=== PATIENT | female | born 1970 | race Caucasian/White ===

== ENCOUNTER 2016-06-15 09:02 | Inpatient (IN) | payer OTHER ==
[2016-06-15 10:12] VITALS: BMI 20.1
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
[2016-06-15] MEDS ORDERED: MAGNESIUM CITRATE 300 ML BOTTLE PO PRN (12:53)
[2016-06-15] MEDS ORDERED: MAGNESIUM HYDROX 2400MG/30ML ORAL SUSPENSION 30 ML CUP PO PRN (12:53)
[2016-06-15] MEDS ORDERED: MENTHOL/PHENOL 1 EACH UD MM PRN (12:53)
[2016-06-15] MEDS ORDERED: P-EPHED 60MG/TRIPROLIDI 2.5MG TABLET PO PRN (12:53)
[2016-06-15] MEDS ORDERED: ACETAMINOPHEN 325 MG TABLET (FP) PO PRN (12:53)
[2016-06-15] MEDS ORDERED: guaiFENesin/D-METHORPHAN HB 10 ML UNIT-DOSE CUPS PO PRN (12:53)
[2016-06-15] MEDS ORDERED: IBUPROFEN 400 MG TABLET (FP) PO PRN (12:53)
[2016-06-15] MEDS ORDERED: MAG HYDROX/AL HYDROX/SIMETH 30 ML UNIT-DOSE CUP PO PRN (12:53)
[2016-06-15] MEDS ORDERED: LOPERAMIDE HCL 2 MG CAPSULE PO PRN (12:53)
[2016-06-15] MEDS ORDERED: diphenhydrAMINE HCL 50 MG CAPSULE PO PRN (12:53)
[2016-06-15] MEDS ORDERED: ALBUTEROL SO4 6.7 GM HFA INHALER IH PRN (12:57)
[2016-06-15] MEDS ORDERED: diazePAM 5 MG TABLET PO ONE (13:30)
[2016-06-15] MEDS ORDERED: METHADONE HCL 10 MG TABLET (FOR DETOX USE ONLY) PO ONE ×2 (13:45→23:00)
[2016-06-15] MEDS: diazePAM 5 MG TABLET PO SCH ×2 (13:53→22:55)
[2016-06-15] MEDS: NICOTINE 21 MG/24 HOURS TOPICAL PATCH TD SCH (13:53)
[2016-06-15] MEDS: CEPHALEXIN MONOHYDRATE 500 MG CAPSULE (UD) PO SCH ×2 (17:33→23:04)
[2016-06-15 19:57] LABS: URINE APPEARANCE CLOUDY; URINE BILIRUBIN NEGATIVE (NEGATIVE); URINE BLOOD NEGATIVE (NEGATIVE); URINE COLOR AMBER; URINE GLUCOSE (UA) NEGATIVE (NEGATIVE); URINE KETONE TRACE (NEGATIVE); URINE NITRITE POSITIVE (NEGATIVE); URINE UROBILINOGEN NEGATIVE E.U./dl (0.2-1.0)
[2016-06-15 20:00] LABS: URINE LEUK ESTERASE 2+ (NEGATIVE); URINE PROTEIN 2+ (NEGATIVE)
[2016-06-15 20:07] LABS: CALCIUM OXALATE CRYSTALS MODERATE /hpf (NONE SEEN); URINE BACTERIA MODERATE /hpf (NONE SEEN); URINE MUCUS MANY; URINE RBC 12 /hpf (0-3); URINE WBC 218 /hpf (3-5)
[2016-06-15] MEDS: ACLIDINIUM BROMIDE 400 MCG/INH AERO.POWD IH SCH (22:55)
[2016-06-15] MEDS: THIAMINE HCL 100 MG TABLET (FP) PO SCH (23:05)
[2016-06-16] MEDS: CEPHALEXIN MONOHYDRATE 500 MG CAPSULE (UD) PO SCH ×3 (05:28→18:00)
[2016-06-16] MEDS: diazePAM 5 MG TABLET PO SCH ×3 (05:30→22:43)
[2016-06-16] MEDS: LEVOTHYROXINE NA 25 MCG TABLET (FP) PO SCH (07:00)
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
[2016-06-16] MEDS ORDERED: METHADONE HCL 10 MG TABLET (FOR DETOX USE ONLY) PO SCH (10:00)
--- NOTE | 2016-06-16 10:13 | PN ---
BHS COWS - Scale Resting Pulse: 1= [place] 81-100 Sweatin= Chills/Flushing Restless Observation: 3= Extraneous Movement Pupil Size: 1= Pupils >than Normal Bone or Joint Aches: 2= Severe Diffuse Aches Runny Nose/ Eye Tearin= Runny Nose/Eyes GI Upset > 30mins: 3= Vomiting/Diarrhea Tremor Observation of Outstretched Hands: 2= Slight Tremor Visible Yawning Observation: 1= 1-2x During Session Anxiety or Irritability: 2=Irritable/Anxious Goose Flesh Skin: 0=Smooth Skin COWS Score: 18 BHS Progress Note (SOAP) Subjective: ALERT,IRRITABLE,ANXIOUS,INTERRUPTED SLEEP,PAIN IN BODY,AND BACK Objective: Vital Signs Temperature 98.1 F 06/16/16 09:31 Pulse Rate 83 06/16/16 09:31 Respiratory Rate 16 06/16/16 09:31 Blood Pressure 112/71 06/16/16 09:31 O2 Sat by Pulse Oximetry (%) EKG NSR INVERTED T IN 2,3 NO CHEST PAIN,NO SOB,NO DIZZINESS Laboratory Last Values Urine Color Rosario 06/15/16 15:00 Urine Appearance Cloudy 06/15/16 15:00 Urine pH 6.0 (5.0-8.0) 06/15/16 15:00 Ur Specific [place] 1.029 (1.001-1.035) 06/15/16 15:00 Urine Protein 2+ (NEGATIVE) H 06/15/16 15:00 Urine Glucose (UA) Negative (NEGATIVE) 06/15/16 15:00 Urine Ketones Trace (NEGATIVE) H 06/15/16 15:00 Urine Blood Negative (NEGATIVE) 06/15/16 15:00 Urine Nitrite Positive (NEGATIVE) 06/15/16 15:00 Urine Bilirubin Negative (NEGATIVE) 06/15/16 15:00 Urine Urobilinogen Negative E.U./dl (0.2-1.0) 06/15/16 15:00 Ur Leukocyte Esterase 2+ (NEGATIVE) H 06/15/16 15:00 Urine RBC 12 /hpf (0-3) 06/15/16 15:00 Urine WBC 218 /hpf (3-5) 06/15/16 15:00 Ur Epithelial Cells Many /hpf (FEW) 06/15/16 15:00 Calcium Oxalate Crystal Moderate /hpf (NONE SEEN) 06/15/16 15:00 Amorphous Urates Few /hpf (NONE SEEN) 06/15/16 15:00 Urine Bacteria Moderate /hpf (NONE SEEN) 06/15/16 15:00 Urine Mucus Many 06/15/16 15:00 LABS PENDING Assessment: 06/16/16 10:13 WITHDRAWAL SYMPTOM Plan: CONTINUE DETOX,REPEAT UA AND URINE FOR C/S
[2016-06-16] MEDS: PRENATAL VITAMINS W/ FOLIC ACID TABLET (FP) PO SCH (10:34)
[2016-06-16] MEDS: diazePAM 5 MG TABLET PO PRN (10:34)
[2016-06-16] MEDS: CALCIUM 500MG/VIT-D 200 UNITS COMBO TABLET (FP) PO SCH (10:34)
[2016-06-16] MEDS: ACLIDINIUM BROMIDE 400 MCG/INH AERO.POWD IH SCH ×2 (10:35→22:43)
[2016-06-16] MEDS: NICOTINE 21 MG/24 HOURS TOPICAL PATCH TD SCH (10:35)
[2016-06-16] MEDS: ASPIRIN 81 MG CHEWABLE TABLETS PO SCH (10:35)
--- NOTE | 2016-06-16 10:36 | EKG ---
Test Reason : Blood Pressure : / mmHG Vent. Rate : 069 BPM Atrial Rate : 069 BPM P-R Int : 148 ms QRS Dur : 082 ms QT Int : 384 ms P-R-T Axes : 014 027 -51 degrees QTc Int : 411 ms POOR DATA QUALITY, INTERPRETATION MAY BE ADVERSELY AFFECTED NORMAL SINUS RHYTHM ABNORMAL ECG WHEN COMPARED WITH ECG OF 07-AUG-2007 11:27, T WAVE INVERSION NOW EVIDENT IN INFERIOR LEADS Confirmed by ALDAIR MOODY, CLARE ([id number]) on 06/16/2016 10:35:42 AM Referred By: Jaxon Gutierrez Confirmed By:CLARE QUINTEROS MD
[2016-06-16 10:38] LABS: MCH 29.1 pg (25.7-33.7); MCHC 32.4 g/dl (32.0-36.0); MEAN CELL VOLUME 89.7 fl (80-96); MEAN PLT VOLUME 9.5 fl (7.5-11.1)
[2016-06-16 10:49] LABS: ALBUMIN 3.5 g/dl (3.4-5.0); ANION GAP 7 (8-16); CALCIUM 8.6 mg/dL (8.5-10.1); CO2 26 mmol/L (21-32); GLUCOSE,RANDOM 109 mg/dL (74-106)
[2016-06-16 10:53] LABS: ALK PHOS 104 U/L (45-117); BILIRUBIN,TOTAL 0.2 mg/dL (0.2-1.0); CREATININE 0.7 mg/dL (0.55-1.02); SGOT/AST 24 U/L (15-37); SGPT/ALT 23 U/L (12-78); TOT PROT 6.9 g/dl (6.4-8.2)
[2016-06-16] MEDS: hydrOXYzine PAMOATE 25 MG CAPSULE (FP) PO PRN (16:04)
[2016-06-16 16:07] LABS: PLATELET COMMENT2 MARKED PLT CLUMPING; PLATELET COMMENT3 MOD LARGE PLTS; PLATELET ESTIMATE ADEQUATE (NORMAL)
[2016-06-16 19:15] LABS: URINE APPEARANCE SLCLOUDY; URINE BILIRUBIN NEGATIVE (NEGATIVE); URINE BLOOD NEGATIVE (NEGATIVE); URINE COLOR YELLOW; URINE GLUCOSE (UA) NEGATIVE (NEGATIVE); URINE KETONE NEGATIVE (NEGATIVE); URINE NITRITE NEGATIVE (NEGATIVE); URINE PROTEIN NEGATIVE (NEGATIVE); URINE UROBILINOGEN NEGATIVE E.U./dl (0.2-1.0)
[2016-06-16 19:16] LABS: URINE LEUK ESTERASE TRACE (NEGATIVE)
[2016-06-16 19:18] LABS: CALCIUM OXALATE CRYSTALS MODERATE /hpf (NONE SEEN); URINE MUCUS RARE; URINE RBC 1 /hpf (0-3); URINE WBC 13 /hpf (3-5)
[2016-06-16] MEDS: THIAMINE HCL 100 MG TABLET (FP) PO SCH (22:43)
[2016-06-17] MEDS: CEPHALEXIN MONOHYDRATE 500 MG CAPSULE (UD) PO SCH ×5 (00:26→23:33)
[2016-06-17] MEDS: diazePAM 5 MG TABLET PO PRN ×4 (05:20→18:43)
[2016-06-17] MEDS: LEVOTHYROXINE NA 25 MCG TABLET (FP) PO SCH (07:11)
[2016-06-17] MEDS: hydrOXYzine PAMOATE 25 MG CAPSULE (FP) PO PRN (08:52)
[2016-06-17] MEDS: CALCIUM 500MG/VIT-D 200 UNITS COMBO TABLET (FP) PO SCH (10:38)
[2016-06-17] MEDS: PRENATAL VITAMINS W/ FOLIC ACID TABLET (FP) PO SCH (10:38)
[2016-06-17] MEDS: ASPIRIN 81 MG CHEWABLE TABLETS PO SCH (10:38)
[2016-06-17] MEDS: METHADONE HCL 5 MG TABLET (FOR DETOX USE ONLY) PO SCH (10:39)
[2016-06-17] MEDS: ACLIDINIUM BROMIDE 400 MCG/INH AERO.POWD IH SCH ×2 (10:39→22:33)
[2016-06-17] MEDS: NICOTINE 21 MG/24 HOURS TOPICAL PATCH TD SCH (10:39)
[2016-06-17] MEDS: diazePAM 5 MG TABLET PO SCH ×2 (10:40→22:31)
--- NOTE | 2016-06-17 11:24 | PN ---
S CIWA - CIWA Score Nausea/Vomitin Muscle Tremors: 3 Anxiety: 3 Agitation: 2 Paroxysmal Sweats: 1-Minimal Palms Moist Orientation: 0-Oriented Tacttile Disturbances: 1-Very Mild Itch/Numbness Auditory Disturbances: 1-Very Mild Visual Disturbances: 1-Very Mild Sensitivity Headache: 2-Mild CIWA-Ar Total Score: 16 S Progress Note (SOAP) Subjective: ALERT,IRRITABLE,INTERRUPTED SLEEP,TREMOR,ACHING PAIN Objective: 06/17/16 11:22 Vital Signs Temperature 96.4 F L 06/17/16 10:09 Pulse Rate 79 06/17/16 10:09 Respiratory Rate 16 06/17/16 10:09 Blood Pressure 118/69 06/17/16 10:09 O2 Sat by Pulse Oximetry (%) Laboratory Last Values WBC 8.0 K/mm3 (4.0-10.0) D 06/16/16 06:00 RBC 3.96 M/mm3 (3.60-5.2) 06/16/16 06:00 Hgb 11.5 GM/dL (10.7-15.3) 06/16/16 06:00 Hct 35.5 % (32.4-45.2) 06/16/16 06:00 MCV 89.7 fl (80-96) 06/16/16 06:00 MCHC 32.4 g/dl (32.0-36.0) 06/16/16 06:00 RDW 15.0 % (11.6-15.6) 06/16/16 06:00 Plt Count Not Reportable 06/16/16 06:00 MPV 9.5 fl (7.5-11.1) 06/16/16 06:00 Platelet Estimate Adequate (NORMAL) 06/16/16 06:00 Platelet Comment Unable to enumerate 06/16/16 06:00 Platelet Comment Marked plt clumping 06/16/16 06:00 Sodium 139 mmol/L (136-145) 06/16/16 06:00 Potassium 4.8 mmol/L (3.5-5.1) 06/16/16 06:00 Chloride 106 mmol/L (98-107) 06/16/16 06:00 Carbon Dioxide 26 mmol/L (21-32) 06/16/16 06:00 Anion Gap 7 (8-16) L 06/16/16 06:00 BUN 11 mg/dL (7-18) D 06/16/16 06:00 Creatinine 0.7 mg/dL (0.55-1.02) 06/16/16 06:00 Creat Clearance w eGFR > 60 (>60) 06/16/16 06:00 Random Glucose 109 mg/dL (74-106) H D 06/16/16 06:00 Calcium 8.6 mg/dL (8.5-10.1) 06/16/16 06:00 Total Bilirubin 0.2 mg/dL (0.2-1.0) D 06/16/16 06:00 AST 24 U/L (15-37) D 06/16/16 06:00 ALT 23 U/L (12-78) D 06/16/16 06:00 Alkaline Phosphatase 104 U/L (45-117) 06/16/16 06:00 Total Protein 6.9 g/dl (6.4-8.2) D 06/16/16 06:00 Albumin 3.5 g/dl (3.4-5.0) D 06/16/16 06:00 Urine Color Yellow 06/16/16 Unknown Urine Appearance Slcloudy 06/16/16 Unknown Urine pH 5.0 (5.0-8.0) 06/16/16 Unknown Ur Specific [place] 1.024 (1.001-1.035) 06/16/16 Unknown Urine Protein Negative (NEGATIVE) 06/16/16 Unknown Urine Glucose (UA) Negative (NEGATIVE) 06/16/16 Unknown Urine Ketones Negative (NEGATIVE) 06/16/16 Unknown Urine Blood Negative (NEGATIVE) 06/16/16 Unknown Urine Nitrite Negative (NEGATIVE) 06/16/16 Unknown Urine Bilirubin Negative (NEGATIVE) 06/16/16 Unknown Urine Urobilinogen Negative E.U./dl (0.2-1.0) 06/16/16 Unknown Ur Leukocyte Esterase Trace (NEGATIVE) H D 06/16/16 Unknown Urine RBC 1 /hpf (0-3) 06/16/16 Unknown Urine WBC 13 /hpf (3-5) 06/16/16 Unknown Ur Epithelial Cells Few /hpf (FEW) 06/16/16 Unknown Calcium Oxalate Crystal Moderate /hpf (NONE SEEN) 06/16/16 Unknown Amorphous Urates Few /hpf (NONE SEEN) 06/15/16 15:00 Urine Bacteria Moderate /hpf (NONE SEEN) 06/15/16 15:00 Urine Mucus Rare 06/16/16 Unknown RPR Titer Nonreactive (NONREACTIVE) 06/16/16 06:00 Assessment: 06/17/16 11:23 WITHDRAWAL SYMPTOM Plan: CONTINUE DETOX
[2016-06-17] MEDS: THIAMINE HCL 100 MG TABLET (FP) PO SCH (22:31)
[2016-06-18] MEDS: CEPHALEXIN MONOHYDRATE 500 MG CAPSULE (UD) PO SCH ×2 (05:32→12:55)
[2016-06-18] MEDS: diazePAM 5 MG TABLET PO PRN ×2 (05:34→12:09)
[2016-06-18] MEDS: LEVOTHYROXINE NA 25 MCG TABLET (FP) PO SCH (07:14)
[2016-06-18] MEDS: CALCIUM 500MG/VIT-D 200 UNITS COMBO TABLET (FP) PO SCH (10:27)
[2016-06-18] MEDS: PRENATAL VITAMINS W/ FOLIC ACID TABLET (FP) PO SCH (10:27)
[2016-06-18] MEDS: diazePAM 5 MG TABLET PO SCH (10:28)
[2016-06-18] MEDS: METHADONE HCL 5 MG TABLET (FOR DETOX USE ONLY) PO SCH (10:28)
[2016-06-18] MEDS: ACLIDINIUM BROMIDE 400 MCG/INH AERO.POWD IH SCH (10:29)
[2016-06-18] MEDS: NICOTINE 21 MG/24 HOURS TOPICAL PATCH TD SCH (10:29)
[2016-06-18] MEDS: hydrOXYzine PAMOATE 25 MG CAPSULE (FP) PO PRN (10:38)
[2016-06-18] MEDS: ASPIRIN 81 MG CHEWABLE TABLETS PO SCH (11:00)
--- NOTE | 2016-06-18 11:30 | PN ---
BHS Progress Note (SOAP) Subjective: interrupted sleep, nauseam sweats, Objective: 06/18/16 11:28 Vital Signs Temperature 97.1 F L 06/18/16 10:16 Pulse Rate 91 H 06/18/16 10:16 Respiratory Rate 20 06/18/16 10:16 Blood Pressure 128/69 06/18/16 10:16 O2 Sat by Pulse Oximetry (%) Laboratory Tests 06/15/16 06/16/16 06/16/16 15:00 06:00 06:00 WBC 8.0 D RBC 3.96 Hgb 11.5 Hct 35.5 MCV 89.7 MCHC 32.4 RDW 15.0 Plt Count Not Reportable MPV 9.5 Platelet Estimate Adequate Platelet Comment Marked plt clumping Sodium 139 Potassium 4.8 Chloride 106 Carbon Dioxide 26 Anion Gap 7 L BUN 11 D Creatinine 0.7 Creat Clearance w eGFR > 60 Random Glucose 109 H D Calcium 8.6 Total Bilirubin 0.2 D AST 24 D ALT 23 D Alkaline Phosphatase 104 Total Protein 6.9 D Albumin 3.5 D Urine Color Rosario Urine Appearance Cloudy Urine pH 6.0 Ur Specific [place] 1.029 Urine Protein 2+ H Urine Glucose (UA) Negative Urine Ketones Trace H Urine Blood Negative Urine Nitrite Positive Urine Bilirubin Negative Urine Urobilinogen Negative Ur Leukocyte Esterase 2+ H Urine RBC 12 Urine WBC 218 Ur Epithelial Cells Many Calcium Oxalate Crystal Moderate Amorphous Urates Few Urine Bacteria Moderate Urine Mucus Many RPR Titer 06/16/16 06/16/16 06:00 Unknown WBC RBC Hgb Hct MCV MCHC RDW Plt Count MPV Platelet Estimate Platelet Comment Sodium Potassium Chloride Carbon Dioxide Anion Gap BUN Creatinine Creat Clearance w eGFR Random Glucose Calcium Total Bilirubin AST ALT Alkaline Phosphatase Total Protein Albumin Urine Color Yellow Urine Appearance Slcloudy Urine pH 5.0 Ur Specific [place] 1.024 Urine Protein Negative Urine Glucose (UA) Negative Urine Ketones Negative Urine Blood Negative Urine Nitrite Negative Urine Bilirubin Negative Urine Urobilinogen Negative Ur Leukocyte Esterase Trace H D Urine RBC 1 Urine WBC 13 Ur Epithelial Cells Few Calcium Oxalate Crystal Moderate Amorphous Urates Urine Bacteria Urine Mucus Rare RPR Titer Nonreactive pt aox3 in nad ambulating with cane Assessment: 06/18/16 11:29 withdrawl sx;s left ankle arthritis Plan: cont. detox increase fluids motrin prn
[2016-06-18 14:13] VITALS: BP 99/77; PULSE 88; TEMP 97.9
--- NOTE | 2016-06-18 14:31 | DS ---
[facility] Detox Discharge Summary Admission Date: 06/15/16 Discharge Date: 06/18/16 - History Present History: Alcohol Dependence, Cannabis Dependence, Opioid Dependence - Physical Exam Results Vital Signs: Vital Signs Temperature 97.9 F 06/18/16 14:13 Pulse Rate 88 06/18/16 14:13 Respiratory Rate 18 06/18/16 14:13 Blood Pressure 99/77 06/18/16 14:13 O2 Sat by Pulse Oximetry (%) - Treatment Hospital Course: Detox Protocol Followed, Detoxed Safely, Responded well, Discharged Condition Good - Medication Discharge Medications: Ambulatory Orders Aspirin [ASA -] 81 mg PO DAILY 12/05/14 Quetiapine Fumarate [Seroquel] 100 mg PO HS #30 tablet 08/03/15 Levothyroxine [Synthroid -] 50 mcg PO DAILY #30 tablet 08/07/15 Tiotropium [place] [Spiriva] 1 inh PO DAILY #1 inh 08/07/15 Albuterol Sulfate Inhaler - [Ventolin HFA Inhaler -] 2 inh IH Q4H PRN #1 cartridge 03/11/16 Calcium Carbonate/Vitamin D3 [Calcium 500 + Vit D Caplet] 1 each PO DAILY Elviteg/Ibeth/Emtric/Tenofo Ala [Genvoya Tablet] 1 each PO DAILY 06/15/16 - Diagnosis (1) CAD (coronary artery disease) Current Visit: Yes Status: Chronic Qualifiers: Coronary Disease-Associated Artery/Lesion type: unspecified vessel or lesion type (2) Cocaine dependence Current Visit: Yes Status: Chronic Qualifiers: Substance use status: uncomplicated Qualified Code(s): F14.20 - Cocaine dependence, uncomplicated (3) Nicotine dependence Current Visit: Yes Status: Chronic Qualifiers: Nicotine product type: cigarettes Substance use status: in withdrawal Qualified Code(s): F17.213 - Nicotine dependence, cigarettes, with withdrawal (4) Opioid dependence with withdrawal Current Visit: Yes Status: Chronic (5) Use of cane as ambulatory aid Current Visit: Yes Status: Chronic (6) Borderline personality disorder Current Visit: Yes Status: Chronic (7) HIV (human immunodeficiency virus infection) Current Visit: Yes Status: Chronic (8) Hypothyroidism Current Visit: Yes Status: Chronic Qualifiers: Hypothyroidism type: unspecified Qualified Code(s): E03.9 - Hypothyroidism, unspecified (9) Alcohol dependence with uncomplicated withdrawal Current Visit: Yes Status: Chronic - AMA Did Patient Leave Against Medical Advice: Yes (wants to leave to be with )
[2016-06-19] MEDS ORDERED: diazePAM 5 MG TABLET PO SCH (10:00)
[2016-06-19] MEDS ORDERED: METHADONE HCL 10 MG TABLET (FOR DETOX USE ONLY) PO SCH (10:00)
[2016-06-20] MEDS ORDERED: METHADONE HCL 5 MG TABLET (FOR DETOX USE ONLY) PO SCH (06:00)
== END 2016-06-18 14:35 | disposition left against medical advice (07) | DRG 894 ==
LOC: YASAS 09:02 → Y6N 13:00
PROVIDERS: ADMIT Internal Medicine; ATTEND Internal Medicine
PROC: HZ2ZZZZ Detoxification Services for Substance Abuse Treatment (ICD-10-PCS; principal; 2016-06-15)
DX: F11.23 Opioid dependence with withdrawal (principal); F14.20 Cocaine dependence, uncomplicated; L03.114 Cellulitis of left upper limb; F10.230 Alcohol dependence with withdrawal, uncomplicated; F17.210 Nicotine dependence, cigarettes, uncomplicated; F19.24 Other psychoactive substance dependence with psychoactive substance-induced mood disorder; F60.3 Borderline personality disorder; F31.9 Bipolar disorder, unspecified; Z21 Asymptomatic human immunodeficiency virus [HIV] infection status; E03.9 Hypothyroidism, unspecified; I25.10 Atherosclerotic heart disease of native coronary artery without angina pectoris; R26.2 Difficulty in walking, not elsewhere classified; M13.872 Other specified arthritis, left ankle and foot; J45.909 Unspecified asthma, uncomplicated; J44.9 Chronic obstructive pulmonary disease, unspecified; Z87.898 Personal history of other specified conditions; Z86.2 Personal history of diseases of the blood and blood-forming organs and certain disorders involving the immune mechanism; Z91.5 Personal history of self-harm
CPT/HCPCS: 36415; 80053; 81003; 81015; 85027; 86593; 87086; 93005; 93010